=== PATIENT | male | born 1945 | race African-American/Black ===

== ENCOUNTER 2022-03-15 15:32 | Emergency (ER) | payer OTHER ==
[~2022-03-15] VITALS: Ht 167.6 cm; Wt 86.2 kg
== END 2022-03-15 17:24 | disposition home or self-care (01) ==
LOC: ER 15:32
DX: S81.832A Puncture wound without foreign body, left lower leg, initial encounter (principal); X58.XXXA Exposure to other specified factors, initial encounter; Y93.89 Activity, other specified; Y92.9 Unspecified place or not applicable; Y99.9 Unspecified external cause status

== ENCOUNTER 2022-03-16 12:53 | Emergency (ER) | payer OTHER ==
[~2022-03-16] VITALS: Ht 167.6 cm; Wt 86.2 kg
== END 2022-03-16 20:22 | disposition home or self-care (01) ==
LOC: ER 12:53
DX: I83.92 Asymptomatic varicose veins of left lower extremity (principal)

== ENCOUNTER 2024-03-24 14:06 | Emergency (ER) | payer OTHER ==
[~2024-03-24] VITALS: Ht 167.6 cm; Wt 90.7 kg
[~2024-03-24 14:06] MED LIST: ALBUTEROL1.25 MG/3 IH; BENADRYL ITCH28.3 GM TOP; OCUFLOX5 ML OP
[2024-03-24] MEDS ORDERED: KETOROLAC TROMETHAMINE 30 MG VIAL IM STA (15:02)
[2024-03-24] MEDS ORDERED: KETOROLAC TROMETHAMINE 30 MG VIAL ONE (15:10)
== END 2024-03-24 16:31 | disposition home or self-care (01) ==
LOC: ER 14:07
DX: M25.571 Pain in right ankle and joints of right foot (principal)

== ENCOUNTER 2024-09-17 10:49 | Emergency (ER) | payer OTHER ==
[~2024-09-17] VITALS: Ht 170.2 cm; Wt 93.0 kg
[2024-09-17] MEDS ORDERED: KETOROLAC TROMETHAMINE 30 MG VIAL IM STA (13:56)
[2024-09-17] MEDS ORDERED: DEXAMETHASONE SODIUM PHOSPHATE 4 MG/ML VIAL IM STA (13:57)
[2024-09-17] MEDS ORDERED: ORPHENADRINE CITRATE 30 MG/ML AMPUL IM STA (13:57)
== END 2024-09-17 15:44 | disposition home or self-care (01) ==
LOC: ER 10:51
DX: M25.552 Pain in left hip (principal)
CPT/HCPCS: 73502; 96372; 99283; J1100; J2360

== ENCOUNTER 2025-03-24 15:23 | Emergency (ER) | payer OTHER ==
[~2025-03-24] VITALS: Ht 162.6 cm; Wt 72.6 kg
[2025-03-24] MEDS ORDERED: KETOROLAC TROMETHAMINE 30 MG VIAL IV STA (18:07)
[2025-03-24] MEDS ORDERED: TRAMADOL HCL 50 MG TABLET PO STA (18:09)
[2025-03-24 18:57] LABS: BASO % 0.5 % (0.1-1.2); EOS # 0.72 (0.04-0.54); EOS % 5.8 % (0.7-7.0); HEMATOCRIT 46.9 % (40.1-51.0); LYMPH # 2.84 (1.18-3.74); LYMPH % 22.9 % (19.3-53.1); MEAN CORPUSCULAR HEMOGLOBIN 28.8 pg (25.6-32.2); MONO # 1.07 (0.24-0.82); MONO % 8.6 % (4.7-12.5); NEUT # 7.67 (1.56-6.13); PLATELET COUNT 189 K/uL (163-369); RED BLOOD COUNT 5.21 M/uL (4.63-6.08); RED CELL DISTRIBUTION WIDTH 13.6 % (11.6-14.4)
[2025-03-24 19:08] LABS: PH,URINE 5.5 (5.0-8.0); URINE APPEARANCE Clear; URINE BILIRRUBIN Negative (NEGATIVE); URINE BLOOD Negative; URINE COLOR Yellow; URINE GLUCOSE Negative (NEGATIVE); URINE KETONE Trace (NEGATIVE); URINE LEUKOCYTE Negative; URINE NITRATE Negative; URINE PROTEIN Negative (NEGATIVE)
[2025-03-24 19:16] LABS: URINE BACTERIA 226.4 uL (0.0-1933); URINE EPITHELIAL CELLS 14.8 uL (0.0-38.8); URINE RBC 9.7 uL (0.0-20.8)
[2025-03-24 19:20] LABS: URINE CAST 0.14 uL (0.0-1.40)
[2025-03-24 19:41] LABS: CALCIUM 9.5 mg/dL (8.5-10.1); CREATININE SERUM 1.41 mg/dL (0.70-1.30); GFR 48.61
[2025-03-24 19:42] LABS: POTASSIUM 5.12 mEq/L (3.5-5.1)
== END 2025-03-24 21:10 | disposition home or self-care (01) ==
LOC: ER 15:35
DX: R10.9 Unspecified abdominal pain (principal); N13.8 Other obstructive and reflux uropathy
CPT/HCPCS: 36415; 74176; 96365; 99284; J1885